=== PATIENT | female | born 1990 | race Caucasian/White ===

== ENCOUNTER 2017-06-05 22:54 | Emergency (ER) | payer MEDICAID ==
[~2017-06-05] VITALS: Ht 165.1 cm; Wt 59.5 kg
[2017-06-05] MEDS ORDERED: HYDROcodone/APAP 5/325 TABLET ONE (23:46)
[2017-06-05] MEDS ORDERED: ONDANSETRON ODT 4 MG ONE (23:46)
[2017-06-05] MEDS ORDERED: KETOROLAC 30 MG/1 ML ONE (23:47)
[2017-06-06] MEDS ORDERED: ONDANSETRON ODT 4 MG PO ONE
[2017-06-06] MEDS ORDERED: HYDROcodone/APAP 5/325 TABLET PO ONE
[2017-06-06] MEDS ORDERED: KETOROLAC 30 MG/1 ML IM ONE
[2017-06-06 00:25] LABS: HCG UR OBC PASS
[2017-06-06 01:24] LABS: ASPARTATE AMINO TRANSFERASE 16 U/L (15-37); BLOOD UREA NITROGEN 10 mg/dL (7-18)
[2017-06-06] MEDS ORDERED: CEFTRIAXONE 1,000 MG IM ONE (01:30)
[2017-06-06] MEDS ORDERED: CEFTRIAXONE 1,000 MG ONE (01:38)
[2017-06-06 01:56] VITALS: BP 118/68
== END 2017-06-06 01:59 | disposition home or self-care (01) ==
LOC: ED 23:59
DX: N30.91 Cystitis, unspecified with hematuria (principal); N10 Acute pyelonephritis
CPT/HCPCS: 36415; 76770; 80053; 81001; 81025; 84703; 85025; 87077; 87086; 87186; 96372; 99285; J0696; J1885; Q0162

== ENCOUNTER 2019-11-06 17:57 | Emergency (ER) | payer BC ==
[~2019-11-06] VITALS: Ht 165.1 cm; Wt 61.4 kg
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
[2019-11-06] MEDS ORDERED: IBUPROFEN 600 MG TABLET PO ONE (18:30)
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
[2019-11-06 19:11] VITALS: BP 120/76
--- NOTE | 2019-11-06 19:11 | NUR ---
PT MEDICATED PER ORDER.
[2019-11-06] MEDS ORDERED: IBUPROFEN 600 MG TABLET ONE (19:14)
--- NOTE | 2019-11-06 19:40 | NUR ---
JANESSA EMERGENCY MANAGER AT BEDSIDE.
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
--- NOTE | 2019-11-06 20:28 | NUR ---
Ruben goodwin in ED - 11/06/19 at 8 [email or web address] PT [address]
--- NOTE | 2019-11-06 20:35 | NUR ---
LOLA TO EARNEST.
--- NOTE | 2019-11-06 20:38 | NUR ---
REPORT GIVEN TO NATALY DENNIS. CARE TRANSFERRED AT THIS TIME. [employer] AT BEDSIDE.
--- NOTE | 2019-11-06 20:38 | NUR ---
REPORT FROM NATALY GILLILAND, TO ASSUME CARE AT THIS TIME. [place] [employer] TO BS FOR REPORT. PLAN TO DC AFTER REPORT IS FILED.
[2019-11-06] MEDS ORDERED: ZIPRASIDONE 20 MG INJ IM ONE (21:06)
[2019-11-06] MEDS ORDERED: LORazepam 2 MG/ML, 1ML ONE (21:06)
== END 2019-11-06 22:10 | disposition home or self-care (01) ==
LOC: ED 19:21
DX: R51 Headache (principal); M54.2 Cervicalgia; R07.89 Other chest pain; Y04.8XXA Assault by other bodily force, initial encounter; Y93.89 Activity, other specified; Y92.099 Unspecified place in other non-institutional residence as the place of occurrence of the external cause; Y99.8 Other external cause status
CPT/HCPCS: 99283